=== PATIENT | male | born 1950 | race Caucasian/White ===

== ENCOUNTER 2020-08-10 10:41 | Emergency (ER) | payer OTHER, SELFPAY ==
--- NOTE | ~2020-08-10 | CT_ITS ---
EXAMINATION: HEAD AND CERVICAL SPINE CT WITHOUT CONTRAST CLINICAL INFORMATION: Fall COMPARISON: None TECHNIQUE: Axial images through the head and cervical spine without contrast. Sagittal and coronal reconstructions on the technologist workstation were performed. Patient dose 740+7-8 mg/cm FINDINGS: Head CT: There is no evidence of an extra-axial collection. There is no evidence of intra-axial or extra-axial hemorrhage. Ventricles and extra-axial CSF spaces are appropriate. Stinson-white matter differentiation is normal. No mass, mass effect or infarct is seen. No skull fracture is seen. There is a soft tissue swelling over the left frontal bone and preseptal soft tissue swelling over the left orbit. Cervical spine CT: Bone alignment is normal. No fracture or dislocation is seen. There is degenerative spondylosis and degenerative disc disease from C4-C5 to T1-T2. There is bilateral multilevel facet arthritis. Prevertebral soft tissues are normal. There are small calcified left upper lobe nodules probably representing calcified granulomas. CT/CT cervical spine wo con IMPRESSION: Head CT: No evidence of intra-axial or extra-axial hemorrhage or skull fracture. Soft tissue swelling over the left frontal bone and orbit. Cervical spine CT: Degenerative changes. No fracture or dislocation seen.
--- NOTE | ~2020-08-10 | CT_ITS ---
EXAMINATION: HEAD AND CERVICAL SPINE CT WITHOUT CONTRAST CLINICAL INFORMATION: Fall COMPARISON: None TECHNIQUE: Axial images through the head and cervical spine without contrast. Sagittal and coronal reconstructions on the technologist workstation were performed. Patient dose 740+7-8 mg/cm FINDINGS: Head CT: There is no evidence of an extra-axial collection. There is no evidence of intra-axial or extra-axial hemorrhage. Ventricles and extra-axial CSF spaces are appropriate. Stinson-white matter differentiation is normal. No mass, mass effect or infarct is seen. No skull fracture is seen. There is a soft tissue swelling over the left frontal bone and preseptal soft tissue swelling over the left orbit. Cervical spine CT: Bone alignment is normal. No fracture or dislocation is seen. There is degenerative spondylosis and degenerative disc disease from C4-C5 to T1-T2. There is bilateral multilevel facet arthritis. Prevertebral soft tissues are normal. There are small calcified left upper lobe nodules probably representing calcified granulomas. CT/CT head/brain wo con IMPRESSION: Head CT: No evidence of intra-axial or extra-axial hemorrhage or skull fracture. Soft tissue swelling over the left frontal bone and orbit. Cervical spine CT: Degenerative changes. No fracture or dislocation seen.
[2020-08-10 10:49] VITALS: BP 187/89; PULSE 70; PULSE 75; RESP 18; TEMP 37.2; O2SAT 100; BMI 25.1
--- NOTE | 2020-08-10 10:59 | ED.FALL ---
HPI - Fall General Chief Complaint: Fall Stated Complaint: FALL,LAC ABOVE EYE Time Seen by Provider: 08/10/20 10:56 Source: patient and EMS Mode of arrival: EMS Limitations: no limitations History of Present Illness HPI Narrative: no AC therapy trip and fall up two steps hit head, no LOC MD complaint: fall Onset (ago): hour(s) (1) Fall from: standing Fall witnessed: no Place fall occurred: other Loss of consciousness: none Prolonged down time: no Symptoms prior to fall: none Context: tripped/slipped Location of injury: face Severity: moderate Quality: dull Associated symptoms (after fall): denies Related Data Allergies Allergy/AdvReac Type Severity Reaction Status Date / Time No Known Allergies Allergy Verified 08/10/20 10:52 Review of Systems Review of Systems: Constitutional : No Fever, No Chills, Cardiovascular : No Chest Pain, No SOB Respiratory : No Dyspnea Gastrointestinal : No abdominal pain Musculoskeletal : No Joint Swelling Skin : No rash, positive skin laceration Neuro : No Weakness, No Numbness Psych : No SI/HI All other systems reviewed and are negative PMFSH Past Medical History Attestation statement: The following information was validated with the patient. Medical History CVA (cerebral vascular accident) High cholesterol HTN (hypertension) Social History Social History (Updated 08/10/20 @ 11:29 by Sandy Balbuena DO) Alcohol intake: never Smoking Status: Never smoker Advance Directives: No Advance Directives Information Provided: No Physical Exam Vital Signs: Vital Signs: Last Vital Signs Temp 98.2 F 08/10/20 11:46 Pulse 68 08/10/20 11:46 Resp 18 08/10/20 11:46 BP 164/84 H 08/10/20 11:46 Pulse Ox 98 08/10/20 11:46 Body Mass Index 25.1 Appearance: Alert. Oriented X3. No acute distress. Eyes: Pupils equal, round and reactive to light. ENT: Pharynx normal. 6cm jagged deep laceration to L eyebrow no eye injury, there is a pulsatile bleed noted on lower margin with brisk bleeding Neck: Normal inspection. Neck supple. CVS: Normal heart rate and rhythm. Pulses normal. Respiratory: No respiratory distress. Breath sounds normal. Abdomen: Soft and nontender. Skin: Skin warm and dry. Normal skin color. Normal skin turgor. Extremities: No lower extremity edema. No calf ttp Neuro: Oriented X 3. No motor deficit. No sensory deficit. Course Course Course Narrative: GCS 15, steady gait, stable VS can be DC at this time Procedures Laceration Laceration 1: Site: face Side (If applicable): left Size (cm): 6 Description: irregular Depth: simple, single layer Local Anesthetic: lidocaine 1% and with epi Amount of anesthesia used (mL): 5 Pre-repair: wound explored and irrigated extensively Skin layer closed with: nylon Size (cm): 5-0 Number of sutures: 6 Technique: simple, interrupted Technique: simple, interrupted and other (3 sutures of 4 vicryl rapide placed for bleeding pulsatile vessel placed internally ) MDM - Fall MDM Narrative Medical decision making narrative: 70 yo male trip and fall with bleeding eyebrow laceration - active pulsatile bleeding noted not on AC therapy no LOC, stat wound repair, CT head/neck for fall Discharge Plan Discharge Clinical Impression: Laceration Head injury Qualifiers: Encounter type: initial encounter Qualified Code(s): S09.90XA - Unspecified injury of head, initial encounter Patient Disposition: Home, Self-Care Instructions: Facial Laceration (ED), Head Injury (ED) Additional Instructions: return to ED for any worsening symptoms or concerns STAY WITH RESPONSIBLE ADULT - MONITOR FOR VOMITING, CHANGE IN BEHAVIORS SUTURES COME OUT IN 7 DAYS MONITOR FOR REDNESS, YELLOW DRAINAGE, FEVERS OKAY TO SHOWER WITH THEM BUT NOT SOAK YOU HAVE 3 ABSORBABLE SUTURES ON THE INSIDE HEAD AND CERVICAL SPINE CT SCAN WERE NORMAL
--- NOTE | 2020-08-10 11:19 | PC.NURSE ---
Dr. Balbuena at bedside to suture L eyebrow lac, approx 6cm. 3 internal and 6 external sutures placed, dressing and ice pack applied.
[2020-08-10 11:46] VITALS: BP 164/84; PULSE 68; RESP 18; TEMP 36.8; O2SAT 98
[2020-08-10 12:48] VITALS: BP 143/59; PULSE 69; RESP 18; O2SAT 100
== END 2020-08-10 12:54 | disposition home or self-care (01) ==
PROVIDERS: Emergency Provider Emergency Medicine; PCP Internal Medicine
DX: S01.112A Laceration without foreign body of left eyelid and periocular area, initial encounter (principal); W17.89XA Other fall from one level to another, initial encounter; I10 Essential (primary) hypertension; Y93.9 Activity, unspecified; Y92.019 Unspecified place in single-family (private) house as the place of occurrence of the external cause; Y99.9 Unspecified external cause status; Z86.73 Personal history of transient ischemic attack (TIA), and cerebral infarction without residual deficits
CPT/HCPCS: 12053; 70450; 72125; 99284

== ENCOUNTER 2023-01-18 07:56 | Outpatient (RCR) | payer BC, SELFPAY | END 2023-01-18 16:00 | disposition home or self-care (01) | LOC: HO.WCC 07:56 | PROVIDERS: PCP Internal Medicine; Visit Provider Physician Assistant | DX: I82.402 Acute embolism and thrombosis of unspecified deep veins of left lower extremity (principal); I10 Essential (primary) hypertension; Z79.01 Long term (current) use of anticoagulants | CPT/HCPCS: 99203 ==